=== PATIENT | male | born 1975 ===

== ENCOUNTER 2018-09-09 12:35 | Emergency (ER) | payer SELFPAY ==
[2018-09-09 12:48] VITALS: BMI 23.7
[2018-09-09 12:53] VITALS: RESP 18; O2SAT 99
[2018-09-09] MEDS ORDERED: Oxycodone/Acetaminophen 5/325 mg Tab PO STA (13:13)
--- NOTE | 2018-09-09 13:13 | C.PDOC ---
History Of Present Illness 43 y/o male presents to ED for medical evaluation of laceration to his left hand. Patient states that he removed a ladder from his car when the wind blew and caused the ladder to fall towards his car, so he grabbed it to prevent it from falling. He states It sliced the palm of his hand between his thumb and index finger and was bleeding profusely so he wrapped his hand with a scarf and came to ED immediately. He rates the pain 7/10. States he is able to move the hand. Denies any paresthesia, weakness. Denies recent tetanus. Time Seen by Provider: 09/09/18 13:02 Chief Complaint (Nursing): Abnormal Skin Integrity History Per: Patient History/Exam Limitations: no limitations Onset/Duration Of Symptoms: Hrs Current Symptoms Are (Timing): Still Present Past Medical History Reviewed: Historical Data, Nursing Documentation, Vital Signs Vital Signs: Last Vital Signs Temp 98.7 F 09/09/18 12:48 Pulse 79 09/09/18 12:48 Resp 18 09/09/18 12:48 BP 165/107 H 09/09/18 12:48 Pulse Ox 99 09/09/18 12:48 Family History: States: No Known Family Hx - Social History Hx Alcohol Use: No Hx Substance Use: No - Immunization History Hx Tetanus Toxoid Vaccination: No Hx Influenza Vaccination: No Hx Pneumococcal Vaccination: No Review Of Systems Constitutional: Negative for: Fever, Chills Cardiovascular: Negative for: Chest Pain Respiratory: Negative for: Shortness of Breath Gastrointestinal: Negative for: Nausea Musculoskeletal: Positive for: Other (Left hand laceration). Negative for: Neck Pain Skin: Negative for: Bruising Neurological: Negative for: Weakness, Headache, Other (paresthesia) Physical Exam - Physical Exam Appears: Non-toxic, No Acute Distress Skin: Warm, Dry Head: Atraumatic, Normacephalic Eye(s): bilateral: Normal Inspection Neck: Normal ROM, Supple Chest: Symmetrical Cardiovascular: Rhythm Regular Respiratory: Normal Breath Sounds, No Wheezing Gastrointestinal/Abdominal: Soft, No Tenderness Extremity: Tenderness, Capillary Refill (less than 2 seconds), Other (6.5cm stellate deep wound to the palm of left hand between thumb and index finger, down to the subcutaneous layer with fat involvement, neurovascularly intact, no tendon involvement) Extremity: Bilateral: Normal ROM Pulses: Left Brachial: Normal, Right Brachial: Normal, Left Radial: Normal, Right Radial: Normal Neurological/Psych: Oriented x3, Normal Speech, Normal Cognition, Normal Motor, Normal Sensation Gait: Steady ED Course And Treatment O2 Sat by Pulse Oximetry: 99 (RA) Pulse Ox Interpretation: Normal - Other Rad Left Hand XR X-Ray: Read By Radiologist Interpretation: Findings: Transverse oblique mildly displaced intra-articular fracture seen at the ulnar base of the 1st metacarpal bone extending to the carpometacarpal joint space. Impression: Transverse oblique mildly displaced intra-articular fracture seen at the ulnar base of the 1st metacarpal bone extending to the carpometacarpal joint space. Medical Decision Making Medical Decision Making: Plan: --Left Hand XR --Tetanus --Keflex 500 mg PO --Percocet senior vice president and chief information officer Dr. Duenas was contacted and consulted. States he will come suture the hand. Spoke to Dr. Posada who states it is okay to close the laceration and to start patient on Keflex. Patient is to follow up with Dr. Posada in her office on Tuesday, . senior vice president and chief information officer closed laceration with 8-10 sutures with prolene. Thumb spica applied. Patient verbalizes understanding and is in agreement with plan. Patient is stable for discharge. Disposition Counseled Patient/Family Regarding: Studies Performed, Diagnosis, Need For Followup, Rx Given - Disposition Referrals: Olivia Posada MD [Staff Provider] - Disposition: HOME/ ROUTINE Disposition Time: 16:06 Condition: STABLE Additional Instructions: Continue Keflex twice a day for seven days Continue Tylenol as needed for pain Contact Dr. Posada on Tuesday to make an appointment/ removal of sutures Return to ED if symptoms worsen or if unable to have sutures removed by Dr. Posada Prescriptions: Acetaminophen [Tylenol] 650 mg PO Q8 #30 capsule Cephalexin [cephalexin] 500 mg PO Q12 #14 cap Instructions: Hand Fracture (DC), Laceration Repair With Stitches (DC) Forms: [facility] (Frisian) Print Language: TURKISH - Clinical Impression Clinical Impression: Laceration of left hand, Huber's fracture of base of metacarpal bone of left thumb - PA / FUSE CUP EXPANDER / Resident Statement MD/DO has reviewed & agrees with the documentation as recorded. - Scribe Statement The provider has reviewed the documentation as recorded by the Scribe Helena Daus All medical record entries made by the Scribe were at my direction and personally dictated by me. I have reviewed the chart and agree that the record accurately reflects my personal performance of the history, physical exam, medical decision making, and the department course for this patient. I have also personally directed, reviewed, and agree with the discharge instructions and disposition.
[2018-09-09] MEDS ORDERED: Oxycodone/Acetaminophen 5/325 mg Tab ONE (13:17)
[2018-09-09] MEDS ORDERED: Tdap Vaccine 0.5 ml Vial (10-64 yrs) IM ONE ×2 (13:45→13:54)
[2018-09-09] MEDS ORDERED: Lidocaine 1% Inj (20ml) INFIL ONE (14:10)
[2018-09-09] MEDS ORDERED: Lidocaine Hydrochloride 5 ML INJ ONE (14:14)
--- NOTE | 2018-09-09 14:38 | RAD ---
Left hand three views HISTORY: Trauma. COMPARISON: None available. Findings: Transverse oblique mildly displaced intra-articular fracture seen at the ulnar base of the 1st metacarpal bone extending to the carpometacarpal joint space. Impression: Transverse oblique mildly displaced intra-articular fracture seen at the ulnar base of the 1st metacarpal bone extending to the carpometacarpal joint space.
--- NOTE | 2018-09-09 15:14 | PCM.PROC ---
Procedures Attestation:: I certify that I have explained the specified Operation(s) or Procedure(s), risks, benefits and reasonable alternatives to the Patient and/or other person responsible. The opportunity was given to ask questions and all questions answered - Laceration lidocaine 1% simple, single layer stellate deep structures intact left hand other other local infiltration simple, interrupted Site: hand Side (if applicable): left Size (cm): 6 Description: stellate Depth: simple, single layer Anesthesia used: lidocaine 1% Anesthesia technique: local infiltration Amount (mLs): 10 Skin layer closed with: other (prolene) Size: other (2.0 prolene) Technique: simple, interrupted
[2018-09-09 16:03] VITALS: BP 146/106; PULSE 70; TEMP 98.9
== END 2018-09-09 16:16 | disposition home or self-care (01) ==
LOC: C.ER 12:35
DX: S61.412A Laceration without foreign body of left hand, initial encounter (principal); S62.212A Bennett's fracture, left hand, initial encounter for closed fracture; W20.8XXA Other cause of strike by thrown, projected or falling object, initial encounter; Z23 Encounter for immunization